=== PATIENT | female | born 1970 | race American Indian/Alaskan Native ===

== ENCOUNTER 2017-08-24 06:56 | Emergency (ER) | payer MEDICARE ==
[2017-08-24 07:08] VITALS: BP 140/95
[2017-08-24 08:03] LABS: Basophils % (Auto) 0.5 % (0.0-1.8); Eosinophils % (Auto) 1.2 % (0.0-4.3); Hematocrit 37.1 % (30.3-42.9); Hemoglobin 11.7 gm/dl (10.1-14.3); Lymphocytes # (Auto) 1.1 K/mm3 (1.2-5.4); Lymphocytes % (Auto) 36.1 % (13.4-35.0); Mean Corpuscular HGB Conc 32 % (30-34); Mean Corpuscular Volume 78 fl (79-97); Monocytes # (Auto) 0.3 K/mm3 (0.0-0.8); Monocytes % (Auto) 8.5 % (0.0-7.3); Platelet Count 287 K/mm3 (140-440); Red Blood Count 4.76 M/mm3 (3.65-5.03); Red Cell Distribution Width 19.6 % (13.2-15.2)
[2017-08-24 08:07] LABS: Mean Corpuscular Hemoglobin 25 pg (28-32)
[2017-08-24 08:26] LABS: Alanine Aminotransferase 10 units/L (7-56); Albumin 3.8 g/dL (3.9-5); BUN/Creatinine Ratio 10; Blood Urea Nitrogen 7 mg/dL (7-17); Calcium 9.1 mg/dL (8.4-10.2); Hemolysis Index 15
[2017-08-24] MEDS ORDERED: PERCOCET 5/325 PO ONE (08:27)
--- NOTE | 2017-08-24 08:27 | Emergency Department Report ---
HPI - General Chief Complaint: Skin Rash Time Seen by Provider: 08/24/17 07:39 - HPI HPI: 46-year-old female presents to the emergency department by EMS from home with complaints of pain and concern for infection to the right amputated upper leg. She also says that she thought she had some bugs that bit her yesterday when she was in her wheelchair and was raking leaves. Patient is also asking for pain medications for her chronic pains secondary to her amputations. She says that she just moved up here from [place] since last month and has been set up to see a primary care doctor/pain physician next week. She has a past medical history of protein S deficiency, hypertension, peripheral artery disease and PTSD. She is a tobacco smoker. She denies any fever, nausea , vomiting, chest pain, shortness of breath. She has a laceration to the bottom of the right leg amputation that she has concern for infection. She has a history of bilateral above-knee amputations. ED Past Medical Hx - Past Medical History Previous Medical History?: Yes Hx Hypertension: Yes Hx Psychiatric Treatment: Yes (bipolar) Additional medical history: protein s deficiency - Social History Smoking Status: Current Every Day Smoker Substance Use Type: Alcohol - Medications Home Medications: Home Medications Medication Instructions Recorded Confirmed Last Taken Type Cephalexin [Keflex] 1,000 mg PO Q12HR #28 cap 08/24/17 Unknown Rx Fluconazole [Diflucan] 150 mg PO ONCE #1 tablet 08/24/17 Unknown Rx Oxycodone HCl/Acetaminophen 1 each PO Q8H PRN #20 tablet 08/24/17 Unknown Rx [Percocet 10/325 mg] ED Review of Systems ROS: Stated complaint: ITCHING Other details as noted in HPI Comment: All other systems reviewed and negative Constitutional: denies: chills, fever Eyes: denies: eye pain, eye discharge, vision change ENT: denies: ear pain, throat pain Respiratory: denies: cough, shortness of breath, wheezing Cardiovascular: denies: chest pain, palpitations Gastrointestinal: denies: abdominal pain, nausea, diarrhea Genitourinary: denies: urgency, dysuria, discharge Musculoskeletal: myalgia. denies: back pain Skin: other (RLE ulceration). denies: rash, lesions Neurological: denies: headache, numbness Physical Exam - Physical Exam Vital Signs: Vital Signs 08/24/17 07:04 Temperature 98 F Pulse Rate 102 H Respiratory 20 Rate Blood Pressure 140/95 O2 Sat by Pulse 99 Oximetry Physical Exam: GENERAL: The patient is well-developed well-nourished. HENT: Normocephalic. Atraumatic. Patient has moist mucous membranes. EYES: Extraocular motions are intact. Pupils equal reactive to light bilaterally. NECK: Supple. Trachea is midline. CHEST/LUNGS: Clear to auscultation. There is no respiratory distress noted. HEART/CARDIOVASCULAR: Regular. There is no tachycardia. There is no murmur. ABDOMEN: Abdomen is soft, nontender. Patient has normal bowel sounds. There is no abdominal distention. SKIN: Skin is warm and dry. Patient has a stage II ulceration to the distal portion of the right ihrnx-tha-zfjw amputation/leg to the stump. There is some very mild erythema and some mild oozing of yellowish discharge. NEURO: The patient is awake, alert, and oriented. The patient is cooperative. The patient has no focal neurologic deficits. The patient has normal speech. MUSCULOSKELETAL: There is some tenderness to palpation to the right distal portion of her amputated leg at the stump. Bilateral above-knee amputations that are chronic. ED Course Vital Signs 08/24/17 07:04 Temperature 98 F Pulse Rate 102 H Respiratory 20 Rate Blood Pressure 140/95 O2 Sat by Pulse 99 Oximetry ED Medical Decision Making - Lab Data Result diagrams: 08/24/17 07:43 08/24/17 07:55 - Radiology Data Radiology results: report reviewed CT PELVIS WITH CONTRAST History: Pain, concern for infection, right lower extremity pain. Technique: Helical CT following IV contrast. Sagittal and coronal reformatted images. Findings: The patient was scanned from the iliac crests through both lower extremities. Bilateral pzdxb-blu-thvo amputations are identified. There is no evidence for abscess, subcutaneous gas or osteomyelitis. Muscular structures are intact and unremarkable. The uterus, adnexa, bladder and visualized bowel loops within the pelvis are unremarkable. Normal appendix. No evidence for pelvic fluid collection or mass. Moderate to severe atherosclerotic disease is noted in the arterial structures in the pelvis. There appears to be a bypass graft in the right lateral wall subcutaneous tissues which is partially imaged. Impression: No acute process or evidence for abscess/osteomyelitis. Bilateral prusd-eby-hsqz amputations with no discrete abnormality. Atherosclerotic disease as described. Transcribed By: TTR Dictated By: DAINELA RODRIGUEZ JR, MD Electronically Authenticated By: DANIELA RODRIGUEZ JR, MD Signed Date/Time: 08/24/17 0716 - Medical Decision Making Patient presents with the complaint of potential infection to the distal portion of the right leg which is an benap-fei-xdbj amputation. There does appear to be a stage II ulceration with some mild oozing discharge and very mild erythema. For this reason the patient was given IV antibiotics. Labs are mostly unremarkable and do not show any leukocytosis. Mild hypokalemia replaced with potassium chloride orally. She was given some pain medication. CT of the pelvis, including the legs, was done with IV contrast that did not show any signs of abscess, osteomyelitis, clots, or any acute process. The patient did display some agitated behavior that may be consistent with her bipolar disorder and was very rude to ER staff. However the patient did appear to have the capacity to make medical decisions for herself and did not appear to be a 1013 candidate. The patient takes chronic pain medication and is switching to a new primary care physician and pain physician in [employer] from [place]. I checked the [place] prescription monitoring and the patient has not been scribed any opiate medication for the past few months. She is asking for enough medication to get her to her primary care appointment. I explained to her that I am not willing to write that quantity of medication and if she needs more, she may need to return to the closest emergency department. She was given a prescription to get her to early next week and we discussed taking it only as prescribed, the sedating nature of this medication, and the risks of taking opiate/narcotic meds. - Differential Diagnosis ulceration, cellulitis, osteomyelitis Critical Care Time: No Critical care attestation.: If time is entered above; I have spent that time in minutes in the direct care of this critically ill patient, excluding procedure time. ED Disposition Clinical Impression: Chronic pain Qualifiers: Chronic pain type: other chronic pain Qualified Code(s): G89.29 - Other chronic pain Ulcer of right leg Qualifiers: Non-pressure ulcer stage: with fat layer exposed Qualified Code(s): L97.912 - Non-pressure chronic ulcer of unspecified part of right lower leg with fat layer exposed Disposition: DC-01 TO HOME OR SELFCARE Is pt being admited?: No Condition: Stable Instructions: Acute Wound Care (ED), Chronic Wound Care (ED), Pressure Ulcer ( ED) Additional Instructions: Please follow up with a primary care physician as soon as possible. Return to the emergency Department with any worsening of her symptoms, development of fever, or with any acute distress. You have been prescribed a medication that is sedating and therefore should not be taken prior to driving, working, and responsible for children and in no way should be mixed with alcohol of any quantity. Prescriptions: Cephalexin [Keflex] 1,000 mg PO Q12HR #28 cap Fluconazole [Diflucan] 150 mg PO ONCE #1 tablet Oxycodone HCl/Acetaminophen [Percocet 10/325 mg] 1 each PO Q8H PRN #20 tablet PRN Reason: Pain Referrals: PRIMARY CARE, [Primary Care Provider] - 3-5 Days DUSTIN KONG MD [Staff Physician] - 3-5 Days [facility] [Outside] - 3-5 Days Time of Disposition: 12:25
[2017-08-24] MEDS ORDERED: K-DUR PO ONE (09:00)
[2017-08-24] MEDS ORDERED: BENADRYL PO ONE (09:02)
[2017-08-24] MEDS ORDERED: VANCOMYCIN/0.45 NS 1 GM/250 ML 1 GM/250 ML BAG IV SCH (11:00)
[2017-08-24] MEDS ORDERED: VANCOMYCIN/NS 1 GM/250 ML 1 GM/250 ML BAG IV SCH (11:00)
--- NOTE | 2017-08-24 12:04 | Cat Scan Report ---
CT PELVIS WITH CONTRAST History: Pain, concern for infection, right lower extremity pain. Technique: Helical CT following IV contrast. Sagittal and coronal reformatted images. Findings: The patient was scanned from the iliac crests through both lower extremities. Bilateral pqfdo-sox-ucdw amputations are identified. There is no evidence for abscess, subcutaneous gas or osteomyelitis. Muscular structures are intact and unremarkable. The uterus, adnexa, bladder and visualized bowel loops within the pelvis are unremarkable. Normal appendix. No evidence for pelvic fluid collection or mass. Moderate to severe atherosclerotic disease is noted in the arterial structures in the pelvis. There appears to be a bypass graft in the right lateral wall subcutaneous tissues which is partially imaged. Impression: No acute process or evidence for abscess/osteomyelitis. Bilateral saipu-fcc-biwd amputations with no discrete abnormality. Atherosclerotic disease as described.
== END 2017-08-24 13:00 | disposition home or self-care (01) ==
LOC: ED 06:56
DX: L97.912 Non-pressure chronic ulcer of unspecified part of right lower leg with fat layer exposed (principal); R10.2 Pelvic and perineal pain; G89.29 Other chronic pain; F31.9 Bipolar disorder, unspecified; I10 Essential (primary) hypertension; F17.200 Nicotine dependence, unspecified, uncomplicated; Z89.611 Acquired absence of right leg above knee; Z89.612 Acquired absence of left leg above knee
CPT/HCPCS: 36415; 72193; 80053; 84703; 85025; 99284; G0480; Q9967; 80320

== ENCOUNTER 2018-09-18 11:17 | Emergency (ER) | payer MEDICARE ==
[2018-09-18 11:27] VITALS: BP 117/72
--- NOTE | 2018-09-18 11:46 | Emergency Department Report ---
Mariela Doc - Documentation Documentation: 47 y o female presents to Ed cc of sob and rectal bleeding that started today. states she fell and hit her head x 2 weeks ago and her [place] doctor told her she needs a CT head talkative in Ed, has psych hx denies SI/HI labs ordered
[2018-09-18 12:34] LABS: Basophils % (Auto) 0.9 % (0.0-1.8); Eosinophils # (Auto) 0.1 K/mm3 (0.0-0.4); Eosinophils % (Auto) 2.1 % (0.0-4.3); Hematocrit 34.7 % (30.3-42.9); Hemoglobin 11.6 gm/dl (10.1-14.3); Lymphocytes # (Auto) 1.4 K/mm3 (1.2-5.4); Lymphocytes % (Auto) 26.8 % (13.4-35.0); Mean Corpuscular HGB Conc 34 % (30-34); Mean Corpuscular Volume 87 fl (79-97); Monocytes # (Auto) 0.3 K/mm3 (0.0-0.8); Monocytes % (Auto) 6.8 % (0.0-7.3); Platelet Count 326 K/mm3 (140-440); Red Blood Count 3.98 M/mm3 (3.65-5.03); Red Cell Distribution Width 16.2 % (13.2-15.2)
--- NOTE | 2018-09-18 12:55 | Emergency Department Report ---
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 Patient also had a history of bipolar disorder. Patient has history of narcotics dependence. She stated that she is taking Percocet every 6 hour. And presented to the ER with multiple complaints. Patient stated that she has been having constipation and painful rectal bleeding. She also stated that she fell 2 weeks ago and hit her head. She also complaining of generalized body pain which is chronic in nature. Patient stated that she is out of her Percocet. Patient denied any fever, chills, nausea or vomiting. No chest pain or shortness of breath. No abdominal pain. Severity scale (0 -10): 10 - Related Data Previous Rx's Medication Instructions Recorded Last Taken Type Fluconazole [Diflucan] 150 mg PO ONCE #1 tablet 08/24/17 Unknown Rx Oxycodone HCl/Acetaminophen 1 each PO Q8H PRN #20 tablet 08/24/17 Unknown Rx [Percocet 10/325 mg] cephALEXin [Keflex] 1,000 mg PO Q12HR #28 cap 08/24/17 Unknown Rx Allergies Allergy/AdvReac Type Severity Reaction Status Date / Time acetaminophen [From Lortab] Allergy Unknown Verified 09/18/18 11:20 hydrocodone [From Lortab] Allergy Unknown Verified 09/18/18 11:20 morphine Allergy Unknown Verified 09/18/18 11:20 Sulfa (Sulfonamide Allergy Unknown Verified 09/18/18 11:20 Antibiotics) ED Review of Systems ROS: Stated complaint: JUAN ANTONIO/BLEEDING/HBP Other details as noted in HPI Comment: All other systems reviewed and negative Constitutional: denies: chills, fever Respiratory: denies: cough, orthopnea, shortness of breath, SOB with exertion Cardiovascular: denies: chest pain, palpitations Gastrointestinal: denies: abdominal pain, nausea Musculoskeletal: back pain Neurological: denies: headache ED Past Medical Hx - Past Medical History Hx Hypertension: Yes Hx Psychiatric Treatment: Yes (bipolar) Additional medical history: protein s deficiency - Surgical History Hx Cholecystectomy: Yes Additional Surgical History: [place] AKA, tubal ligation, tumor removal. - Social History Smoking Status: Current Every Day Smoker Substance Use Type: None - Medications Home Medications: Home Medications Medication Instructions Recorded Confirmed Last Taken Type Fluconazole [Diflucan] 150 mg PO ONCE #1 tablet 08/24/17 Unknown Rx Oxycodone HCl/Acetaminophen 1 each PO Q8H PRN #20 tablet 08/24/17 Unknown Rx [Percocet 10/325 mg] cephALEXin [Keflex] 1,000 mg PO Q12HR #28 cap 08/24/17 Unknown Rx ED Physical Exam - General Limitations: No Limitations General appearance: alert, in no apparent distress - Head Head exam: Present: atraumatic, normocephalic - Eye Eye exam: Present: normal appearance, PERRL - ENT ENT exam: Present: normal exam, normal orophraynx, mucous membranes moist - Neck Neck exam: Present: normal inspection, full ROM. Absent: tenderness, meningismus, lymphadenopathy, thyromegaly - Respiratory Respiratory exam: Present: normal lung sounds bilaterally. Absent: respiratory distress, wheezes, rales, rhonchi, stridor, chest wall tenderness, accessory muscle use, decreased breath sounds, prolonged expiratory - Cardiovascular Cardiovascular Exam: Present: regular rate, normal rhythm, normal heart sounds - GI/Abdominal GI/Abdominal exam: Present: soft, normal bowel sounds. Absent: distended, tenderness, guarding, rebound, rigid, organomegaly, mass, bruit, pulsatile mass, hernia - Extremities Exam Extremities exam: Present: normal inspection - Back Exam Back exam: Present: normal inspection, full ROM. Absent: CVA tenderness (R), CVA tenderness (L), muscle spasm - Neurological Exam Neurological exam: Present: alert, oriented X3, CN II-XII intact - Skin Skin exam: Present: warm, intact, normal color ED Course Vital Signs 09/18/18 11:25 Temperature 98.5 F Pulse Rate 84 Respiratory 20 Rate Blood Pressure 117/72 O2 Sat by Pulse 97 Oximetry ED Medical Decision Making - Lab Data Result diagrams: 09/18/18 12:15 09/18/18 12:15 - Radiology Data Radiology results: report reviewed Referring Physician: SLIVIO ACKERMAN Patient Name: ALEXANDER JACKSON Date of : 1970 Sex: Female Report Date: 2018-09-18 Report Status: Finalized Findings [facility] [address] [id number] Cat Scan Report Signed Patient: ALEXANDER JACKSON MR#: [id number] : 1970 Acct:[id number] Age/Sex: 47 / F ADM Date: 09/18/18 Loc: ED Attending Dr: Ordering Physician: BRIGITTE PALOMO Date of Service: 09/18/18 Procedure(s): CT head/brain wo con Accession Number(s): [id number] cc: BRIGITTE PALOMO EXAM: CT HEAD/BRAIN WO CON HISTORY: head pain s/p fall TECHNIQUE: Spiral axial CT images are obtained through the brain without the administration of intravenous contrast. COMPARISON: None available. FINDINGS: The centrum semiovale, basal ganglia, cerebellum, and brainstem are grossly unremarkable for a noncontrast CT scan. There is no acute intracranial hemorrhage, discernible acute infarction, mass lesion, midline shift, or hydrocephalus seen. No extra-axial mass or abnormal fluid collection is seen. The calvarium is intact. The partially imaged paranasal sinuses, middle ear cavities, and mastoid air cells are clear. IMPRESSION: 1. No skull fracture or acute intracranial hemorrhage seen. 2. No discernible acute infarction, mass lesions, midline shift, mass effect or hydrocephalus seen. 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 Patient also had a history of bipolar disorder. Patient has history of narcotics dependence. She stated that she is taking Percocet every 6 hour. And presented to the ER with multiple complaints. Patient stated that she has been having constipation and painful rectal bleeding. She also stated that she fell 2 weeks ago and hit her head. She also complaining of generalized body pain which is chronic in nature. Patient stated that she is out of her Percocet. Patient denied any fever, chills, nausea or vomiting. No chest pain or shortness of breath. No abdominal pain. Labs reviewed and is unremarkable except for slightly elevated d-dimer which is expected for patient chronic coagulopathy. CT brain is negative for acute findings. Patient will be given a Percocet until she will see how her pain medicine doctor after tomorrow. Critical care attestation.: If time is entered above; I have spent that time in minutes in the direct care of this critically ill patient, excluding procedure time. ED Disposition Clinical Impression: Head injury, Chronic pain Disposition: DC-01 TO HOME OR SELFCARE Is pt being admited?: No Condition: Stable Instructions: Minor Head Injury (ED), Chronic Pain (ED) Referrals: [facility] [Provider Group] - 3-5 Days
[2018-09-18 12:57] LABS: Alanine Aminotransferase 17 units/L (7-56); Albumin 3.8 g/dL (3.9-5); BUN/Creatinine Ratio 11; Blood Urea Nitrogen 8 mg/dL (7-17); Calcium 8.7 mg/dL (8.4-10.2); Hemolysis Index 13
--- NOTE | 2018-09-18 13:57 | Cat Scan Report ---
EXAM: CT HEAD/BRAIN WO CON HISTORY: head pain s/p fall TECHNIQUE: Spiral axial CT images are obtained through the brain without the administration of intra venous contrast. COMPARISON: None available. FINDINGS: The centrum semiovale, basal ganglia, cerebellum, and brainstem are grossly unremarkable for a noncon trast CT scan. There is no acute intracranial hemorrhage, discernible acute infarction, mass lesion, midline shift, or hydrocephalus seen. No extra-axial mass or abnormal fluid collection is seen. The calvarium is intact. The partially imaged paranasal sinuses, middle ear cavities, and mastoid ai r cells are clear. IMPRESSION: 1. No skull fracture or acute intracranial hemorrhage seen. 2. No discernible acute infarction, mass lesions, midline shift, mass effect or hydrocephalus seen. This document is electronically signed by Rodrigo Mattson MD., September 18 2018 01:55:21 PM ET
[2018-09-18 14:17] LABS: INR 0.82 (0.87-1.13)
== END 2018-09-18 15:25 | disposition home or self-care (01) ==
LOC: ED 11:17
DX: S09.90XA Unspecified injury of head, initial encounter (principal); F14.20 Cocaine dependence, uncomplicated; I10 Essential (primary) hypertension; F17.200 Nicotine dependence, unspecified, uncomplicated; Z90.49 Acquired absence of other specified parts of digestive tract; Z98.51 Tubal ligation status; Z89.612 Acquired absence of left leg above knee; Z89.611 Acquired absence of right leg above knee; Z88.5 Allergy status to narcotic agent; Z88.2 Allergy status to sulfonamides; Z88.8 Allergy status to other drugs, medicaments and biological substances; W18.39XA Other fall on same level, initial encounter; Y93.89 Activity, other specified; Y92.89 Other specified places as the place of occurrence of the external cause; Y99.8 Other external cause status
CPT/HCPCS: 36415; 70450; 80053; 85025; 85379; 85610; 99284

== ENCOUNTER 2018-10-02 17:57 | Emergency (ER) | payer MEDICARE ==
[2018-10-02] MEDS ORDERED: IBUPROFEN PO ONE ×2 (20:06→20:07)
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
[2018-10-02 23:44] VITALS: BP 128/76
== END 2018-10-02 23:45 | disposition home or self-care (01) ==
LOC: ED 17:57
DX: S46.912A Strain of unspecified muscle, fascia and tendon at shoulder and upper arm level, left arm, initial encounter (principal); S39.012A Strain of muscle, fascia and tendon of lower back, initial encounter; I10 Essential (primary) hypertension; F31.9 Bipolar disorder, unspecified; F17.200 Nicotine dependence, unspecified, uncomplicated; Z90.49 Acquired absence of other specified parts of digestive tract; Z98.51 Tubal ligation status; Z88.2 Allergy status to sulfonamides; Z88.6 Allergy status to analgesic agent; Z79.899 Other long term (current) drug therapy; V89.2XXA Person injured in unspecified motor-vehicle accident, traffic, initial encounter; Y93.89 Activity, other specified; Y92.488 Other paved roadways as the place of occurrence of the external cause; Y99.8 Other external cause status
CPT/HCPCS: 72100

== ENCOUNTER 2018-11-01 22:59 | Inpatient (IN) | payer MEDICARE ==
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
[2018-11-01 23:39] LABS: Hematocrit 32.8 % (30.3-42.9); Hemoglobin 11.2 gm/dl (10.1-14.3); Mean Corpuscular HGB Conc 34 % (30-34); Mean Corpuscular Volume 87 fl (79-97); Platelet Count 249 K/mm3 (140-440); Red Blood Count 3.79 M/mm3 (3.65-5.03); Red Cell Distribution Width 17.1 % (13.2-15.2)
[2018-11-01 23:58] LABS: BUN/Creatinine Ratio 13; Blood Urea Nitrogen 10 mg/dL (7-17); Calcium 9.1 mg/dL (8.4-10.2); Hemolysis Index 6
--- NOTE | 2018-11-02 00:01 | XRay Report ---
PROCEDURE: XR CHEST 1V AP TECHNIQUE: Chest radiograph single view. HISTORY: Chest Pain COMPARISONS: None . FINDINGS: Heart: Normal. Mediastinum/Vessels: Normal. Lungs/Pleural space: There are bilateral perihilar infiltrates. There are no effusions or pneumothor aces.. Bony thorax: No acute osseous abnormality. Life support devices: None. IMPRESSION: Heart size is normal. There are bilateral pulmonary infiltrates.. This document is electronically signed by Tj Alexander MD., Nov 01 2018 11:59:44 PM ET
[2018-11-02] MEDS ORDERED: LEVAQUIN 500MG/100ML 500 MG/100 ML BAG IV ONE (00:12)
[2018-11-02] MEDS ORDERED: TYLENOL PO PRN (01:20)
[2018-11-02] MEDS ORDERED: SODIUM CHLORIDE FLUSH SYRINGE 10 ML IV PRN (01:20)
--- NOTE | 2018-11-02 01:24 | History and Physical Report ---
History of Present Illness Date of examination: 11/02/18 History of present illness: 47-year-old woman with a history of hypertension, bipolar, protein S deficiency, DVT, chronic pain comes o the emergency room with complaints of shortness of breath 2 days. Difficult to obtain ROS, sleepy PAST MEDICAL HISTORY: hypertension, bipolar, protein S deficienc PAST SURGICAL HISTORY: Bilateral AKA SOCIAL HISTORY: Denies alcohol, drugs, tobacco FAMILY HISTORY: Hypertension Medications and Allergies Allergies Allergy/AdvReac Type Severity Reaction Status Date / Time acetaminophen [From Lortab] Allergy Unknown Verified 10/02/18 18:07 hydrocodone [From Lortab] Allergy Unknown Verified 10/02/18 18:07 morphine Allergy Unknown Verified 10/02/18 18:07 Sulfa (Sulfonamide Allergy Unknown Verified 10/02/18 18:07 Antibiotics) Home Medications Medication Instructions Recorded Confirmed Last Taken Type Fluconazole [Diflucan] 150 mg PO ONCE #1 tablet 08/24/17 Unknown Rx Oxycodone HCl/Acetaminophen 1 each PO Q8H PRN #20 tablet 08/24/17 Unknown Rx [Percocet 10/325 mg] cephALEXin [Keflex] 1,000 mg PO Q12HR #28 cap 08/24/17 Unknown Rx Lactulose 10 gm PO DAILY PRN #150 ml 09/18/18 Unknown Rx Oxycodone HCl/Acetaminophen 1 each PO Q6HR PRN #10 tablet 09/18/18 Unknown Rx [Percocet 10/325 mg] Cyclobenzaprine [Flexeril] 10 mg PO TID PRN #30 tablet 10/02/18 Unknown Rx Naproxen [Naprosyn] 500 mg PO BID PRN #30 tablet 10/02/18 Unknown Rx Active Meds: Active Medications Acetaminophen (Tylenol) 650 mg PO Q4H PRN PRN Reason: Pain MILD(1-3)/Fever >100.5/BOSE Albuterol/Ipratropium (Duoneb *Not For Prn Use*) 1 ampul IH Q6HRT LETTY Enoxaparin Sodium (Lovenox) 30 mg SUB-Q QDAY LETTY Levofloxacin/Dextrose (Levaquin 750mg/150ml) 750 mg in 150 mls @ 100 mls/hr IV Q24H LETTY Ondansetron HCl (Zofran) 4 mg IV Q8H PRN PRN Reason: Nausea And Vomiting Sodium Chloride (Sodium Chloride Flush Syringe 10 Ml) 10 ml IV BID LETTY Sodium Chloride (Sodium Chloride Flush Syringe 10 Ml) 10 ml IV PRN PRN PRN Reason: LINE FLUSH Exam - Physical Exam Narrative exam: PGeneral Apperance: The patient lying in bed, breathing comfortable HEENT: Normocephalic, atraumatic. Pupils equally round and reactive to light, EOMI, no sclericterus or JVD or thyromegaly or nodule. , no carotid bruit, mucous membranes moist, no exudate or erythema Heart: S1-S2, regular is rhythm Lungs: Crackles bilaterally, breathing comfortable Abdomen: Positive bowel sounds, soft, nontender, nondistended, no organomegaly Extremities: b/l AKA, No edema cyanosis clubbing Skin: no rash, nodule, warm and dry Neuro: cranial nerves 2-12 intact, speech is fluent, motor/sensory intact - Constitutional Vitals: Temp Pulse Resp BP Pulse Ox 98.2 F 92 H 11 L 106/79 96 11/01/18 23:08 11/02/18 01:15 11/02/18 01:15 11/02/18 01:15 11/02/18 01:15 Results - Labs CBC & Chem 7: 11/01/18 23:29 11/01/18 23:29 Labs: Abnormal lab results 11/01/18 Range/Units 23:29 WBC 4.3 L (4.5-11.0) K/mm3 RDW 17.1 H (13.2-15.2) % - Imaging and Cardiology EKG: image reviewed Chest x-ray: report reviewed Assessment and Plan Assessment Bilateral community-acquired pneumonia Hypertension Bipolar Protein S deficiency Plan Admit to medicine Start IV Levaquin, breathing treatments Continue Provera prescribed medication saline to which prophylaxis
[2018-11-02] MEDS: DUONEB *Not for PRN Use IH SCH ×4 (02:00→21:21)
[2018-11-02 03:16] LABS: Band Neutrophils # (Manual) 0.1 K/mm3; Basophils % (Manual) 0 % (0.0-1.8); Total Cells Counted 100
[2018-11-02 03:17] LABS: Anisocytosis 1+; Hypochromasia 1+
[2018-11-02] MEDS ORDERED: LOVENOX SUB-Q SCH (10:00)
[2018-11-02] MEDS: SODIUM CHLORIDE FLUSH SYRINGE 10 ML IV SCH ×2 (11:47→22:31)
[2018-11-02] MEDS: LOVENOX SUB-Q SCH (11:47)
[2018-11-02] MEDS ORDERED: MIRALAX 3350 PO PRN (13:26)
[2018-11-02] MEDS ORDERED: PERCOCET PO PRN (17:01)
[2018-11-02] MEDS ORDERED: EFFEXOR 225 MG PO SCH (17:15)
[2018-11-02] MEDS ORDERED: PROTONIX 20 MG PO SCH (17:15)
[2018-11-02] MEDS: PERCOCET 5/325 PO PRN ×2 (17:45→22:34)
[2018-11-02] MEDS: XARELTO PO SCH (18:25)
[2018-11-02] MEDS: XANAX PO PRN (19:46)
[2018-11-02] MEDS: EFFEXOR PO SCH (19:46)
[2018-11-02] MEDS ORDERED: LIPITOR 10 MG PO SCH (22:00)
[2018-11-02] MEDS ORDERED: REMERON PO SCH (22:00)
[2018-11-02] MEDS ORDERED: NON-FORMULARY (Metoprolol 25 MG) PO SCH (22:00)
[2018-11-02] MEDS ORDERED: NON-FORMULARY (Trazodone 100 MG) PO SCH (22:00)
[2018-11-02] MEDS ORDERED: LYRICA 200 MG PO SCH (22:00)
[2018-11-02] MEDS: LEVAQUIN 750MG/150ML 750 MG/150 ML BAG IV SCH (22:19)
[2018-11-02] MEDS: GEODON PO SCH (22:28)
[2018-11-02] MEDS: REMERON PO SCH (22:29)
[2018-11-02] MEDS: LYRICA PO SCH ×2 (22:29)
[2018-11-02] MEDS: DESYREL PO SCH (22:31)
[2018-11-02] MEDS: LOPRESSOR PO SCH (22:33)
[2018-11-02] MEDS: ZOFRAN IV PRN (23:24)
[2018-11-03] MEDS: BENADRYL PO PRN ×3 (00:26→21:46)
[2018-11-03] MEDS ORDERED: PROVENTIL IH PRN (01:24)
[2018-11-03] MEDS: PERCOCET 5/325 PO PRN ×5 (02:27→21:52)
[2018-11-03] MEDS: ROXICODONE PO PRN ×5 (02:30→22:29)
[2018-11-03] MEDS: LYRICA PO SCH ×5 (04:59→21:46)
[2018-11-03 07:14] LABS: Hematocrit 32.2 % (30.3-42.9); Hemoglobin 10.6 gm/dl (10.1-14.3); Mean Corpuscular HGB Conc 33 % (30-34); Mean Corpuscular Volume 87 fl (79-97); Platelet Count 230 K/mm3 (140-440); Red Blood Count 3.69 M/mm3 (3.65-5.03); Red Cell Distribution Width 17.2 % (13.2-15.2)
[2018-11-03 07:28] LABS: BUN/Creatinine Ratio 13; Blood Urea Nitrogen 10 mg/dL (7-17); Calcium 8.4 mg/dL (8.4-10.2); Hemolysis Index 7
[2018-11-03] MEDS: DUONEB *Not for PRN Use IH SCH ×3 (08:16→19:42)
[2018-11-03 08:23] LABS: Total Cells Counted 100
[2018-11-03 08:24] LABS: Hypochromasia Few; Platelet Estimate Consistent w Auto
[2018-11-03] MEDS: LOPRESSOR PO SCH ×2 (10:00→21:49)
[2018-11-03] MEDS: LOVENOX SUB-Q SCH (11:30)
[2018-11-03] MEDS: EFFEXOR PO SCH (11:51)
[2018-11-03] MEDS: PROTONIX PO SCH (11:53)
[2018-11-03] MEDS: SODIUM CHLORIDE FLUSH SYRINGE 10 ML IV SCH ×2 (11:53→22:48)
[2018-11-03] MEDS: XANAX PO PRN ×3 (12:02→20:47)
--- NOTE | 2018-11-03 13:08 | Progress Note ---
Assessment and Plan Assessment and plan: 47 f who pw sob and cough, [facility]; htn, bipolar, protein s def, hx of PE, Bilateral community-acquired pneumonia Hypertension Bipolar Protein S deficiency acute hypoxic resp failure plan abx, cont home meds oxygen as needed GEripsych eval History Interval history: Review of systems Constitutional: No fevers, no malaise, no joint pains CVS: No chest pain, no orthopnea, no pedal edema GI: No abdominal pain, no diarrhea, no vomiting, no constipation Respiratory: Shortness of breath and cough is improved Hospitalist Physical - Physical exam Narrative exam: General.: Appears well, no distress, nontoxic HEENT: Moist mucous membranes, extraocular muscles intact, no lymphadenopathy Neck: supple Cardiac: S1-S2 heard Lungs: Crackles Abdomen: soft , nontender, nondistended, bowel sounds positive Extremities: no edema clubbing or cyanosis, bilateral AKA Skin: no rash or lesions Neurologic: no gross focal deficits Psych: calm, and cooperative - Constitutional Vitals: Temp Pulse Resp BP Pulse Ox 98.2 F 102 H 20 118/76 98 11/03/18 05:13 11/03/18 08:28 11/03/18 08:28 11/03/18 05:13 11/03/18 09:45 Results - Labs CBC & Chem 7: 11/03/18 06:31 11/03/18 06:31 Labs: Laboratory Last Values WBC 3.7 K/mm3 (4.5-11.0) L 11/03/18 06:31 RBC 3.69 M/mm3 (3.65-5.03) 11/03/18 06:31 Hgb 10.6 gm/dl (10.1-14.3) 11/03/18 06:31 Hct 32.2 % (30.3-42.9) 11/03/18 06:31 MCV 87 fl (79-97) 11/03/18 06:31 MCH 29 pg (28-32) 11/03/18 06:31 MCHC 33 % (30-34) 11/03/18 06:31 RDW 17.2 % (13.2-15.2) H 11/03/18 06:31 Plt Count 230 K/mm3 (140-440) 11/03/18 06:31 Add Manual Diff Complete 11/03/18 06:31 Total Counted 100 11/03/18 06:31 Seg Neuts % (Manual) 40.0 % (40.0-70.0) 11/03/18 06:31 1.0 % 11/03/18 06:31 44.0 % (13.4-35.0) H 11/03/18 06:31 Reactive Lymphs % (Man) 2.0 % 11/03/18 06:31 8.0 % (0.0-7.3) H 11/03/18 06:31 2.0 % (0.0-4.3) 11/03/18 06:31 1.0 % (0.0-1.8) 11/03/18 06:31 1.0 % 11/03/18 06:31 1.0 % 11/03/18 06:31 0 % 11/03/18 06:31 0 % 11/03/18 06:31 Nucleated RBC % Not Reportable 11/03/18 06:31 Seg Neutrophils # Man 1.5 K/mm3 (1.8-7.7) L 11/03/18 06:31 Band Neutrophils # 0.0 K/mm3 11/03/18 06:31 1.6 K/mm3 (1.2-5.4) 11/03/18 06:31 Abs React Lymphs (Man) 0.1 K/mm3 11/03/18 06:31 0.3 K/mm3 (0.0-0.8) 11/03/18 06:31 0.1 K/mm3 (0.0-0.4) 11/03/18 06:31 0.0 K/mm3 (0.0-0.1) 11/03/18 06:31 0.0 K/mm3 11/03/18 06:31 0.0 K/mm3 11/03/18 06:31 0.0 K/mm3 11/03/18 06:31 Blast Cells # 0.0 K/mm3 11/03/18 06:31 WBC Morphology Not Reportable 11/03/18 06:31 Hypersegmented Neuts Not Reportable 11/03/18 06:31 Hyposegmented Neuts Not Reportable 11/03/18 06:31 Hypogranular Neuts Not Reportable 11/03/18 06:31 Not Reportable 11/03/18 06:31 Not Reportable 11/03/18 06:31 Not Reportable 11/03/18 06:31 Not Reportable 11/03/18 06:31 Not Reportable 11/03/18 06:31 Not Reportable 11/03/18 06:31 Consistent w auto 11/03/18 06:31 Not Reportable 11/03/18 06:31 Plt Clumps, EDTA Not Reportable 11/03/18 06:31 Not Reportable 11/03/18 06:31 Not Reportable 11/03/18 06:31 Not Reportable 11/03/18 06:31 Plt Morphology Comment Not Reportable 11/03/18 06:31 RBC Morphology Not Reportable 11/03/18 06:31 Dimorphic RBCs Not Reportable 11/03/18 06:31 Not Reportable 11/03/18 06:31 Few 11/03/18 06:31 Not Reportable 11/03/18 06:31 Not Reportable 11/03/18 06:31 Not Reportable 11/03/18 06:31 Not Reportable 11/03/18 06:31 Not Reportable 11/03/18 06:31 Not Reportable 11/03/18 06:31 Not Reportable 11/03/18 06:31 Not Reportable 11/03/18 06:31 Not Reportable 11/03/18 06:31 Not Reportable 11/03/18 06:31 Not Reportable 11/03/18 06:31 Not Reportable 11/03/18 06:31 Not Reportable 11/03/18 06:31 Not Reportable 11/03/18 06:31 Not Reportable 11/03/18 06:31 Not Reportable 11/03/18 06:31 Not Reportable 11/03/18 06:31 Acanthocytes (Spur) Not Reportable 11/03/18 06:31 Rouleaux Not Reportable 11/03/18 06:31 Not Reportable 11/03/18 06:31 Not Reportable 11/03/18 06:31 Not Reportable 11/03/18 06:31 Not Reportable 11/03/18 06:31 Hem Pathologist Commnt No 11/03/18 06:31 Sodium 138 mmol/L (137-145) 11/03/18 06:31 Potassium 4.0 mmol/L (3.6-5.0) 11/03/18 06:31 Chloride 99.2 mmol/L (98-107) 11/03/18 06:31 Carbon Dioxide 26 mmol/L (22-30) 11/03/18 06:31 17 mmol/L 11/03/18 06:31 BUN 10 mg/dL (7-17) 11/03/18 06:31 0.8 mg/dL (0.7-1.2) 11/03/18 06:31 Estimated GFR > 60 ml/min 11/03/18 06:31 13 % 11/03/18 06:31 Glucose 162 mg/dL (65-100) H 11/03/18 06:31 Calcium 8.4 mg/dL (8.4-10.2) 11/03/18 06:31 Active Medications - Current Medications Current Medications: Generic Name Dose Route Start Last Admin Trade Name Freq PRN Reason Stop Dose Admin Acetaminophen 650 mg 11/02/18 01:20 Tylenol PO Q4H PRN Pain MILD(1-3)/Fever >100.5/BOSE Albuterol 2.5 mg 11/03/18 01:24 Proventil IH Q4HRT PRN Shortness Of Breath Albuterol/Ipratropium 1 ampul 11/03/18 08:00 11/03/18 08:16 Duoneb *Not For Prn Use* IH 1 ampul TIDRT LETTY Administration Alprazolam 1 mg 11/02/18 17:01 11/03/18 12:02 Xanax PO 1 mg TID PRN Administration Anxiety Atorvastatin Calcium 10 mg 11/02/18 22:00 11/02/18 22:28 Lipitor PO 10 mg QHS LETTY Administration Diphenhydramine HCl 25 mg 11/02/18 23:53 11/03/18 00:26 Benadryl PO 25 mg Q8H PRN Administration Itching Levofloxacin/Dextrose 750 mg in 150 mls @ 100 mls/hr 11/02/18 22:00 11/02/18 22:19 Levaquin 750mg/150ml IV 100 mls/hr Q24H LETTY Administration Metoprolol Tartrate 25 mg 11/02/18 22:00 11/02/18 22:33 Lopressor PO 25 mg BID LETTY Administration Mirtazapine 22.5 mg 11/02/18 22:00 11/02/18 22:29 Remeron PO 22.5 mg QHS LETTY Administration Ondansetron HCl 4 mg 11/02/18 01:20 11/02/18 23:24 Zofran IV 4 mg Q8H PRN Administration Nausea And Vomiting Oxycodone HCl 5 mg 11/02/18 23:49 11/03/18 12:56 Roxicodone PO 5 mg Q4H PRN Administration Pain, Moderate (4-6) Oxycodone/Acetaminophen 1 tab 11/02/18 23:51 11/03/18 12:55 Percocet 5/325 PO 1 tab Q4H PRN Administration Pain, Moderate (4-6) Pantoprazole Sodium 20 mg 11/03/18 10:00 11/03/18 11:53 Protonix PO 20 mg QDAY LETTY Administration Polyethylene Glycol 17 gm 11/02/18 13:26 Miralax 3350 PO QDAY PRN Constipation Pregabalin 150 mg 11/02/18 22:00 11/03/18 11:52 Lyrica PO 150 mg BID LETTY Administration Pregabalin 50 mg 11/02/18 22:00 11/03/18 11:52 Lyrica PO 50 mg BID LETTY Administration Rivaroxaban 20 mg 11/02/18 18:00 11/02/18 18:25 Xarelto PO 20 mg DAILY LETTY Administration Protocol Sodium Chloride 10 ml 11/02/18 10:00 11/03/18 11:53 Sodium Chloride Flush Syringe 10 Ml IV 10 ml BID LETTY Administration Sodium Chloride 10 ml 11/02/18 01:20 Sodium Chloride Flush Syringe 10 Ml IV PRN PRN LINE FLUSH Trazodone HCl 100 mg 11/02/18 22:00 11/02/18 22:31 Desyrel PO Not Given QHS LETTY Venlafaxine HCl 225 mg 11/02/18 20:00 11/03/18 11:51 Effexor PO 225 mg QDAY LETTY Administration Ziprasidone 40 mg 11/02/18 22:00 11/02/18 22:28 Geodon PO 40 mg QHS LETTY Administration
[2018-11-03] MEDS: XARELTO PO SCH (13:38)
[2018-11-03] MEDS: REMERON PO SCH (21:47)
[2018-11-03] MEDS: DESYREL PO SCH (22:02)
[2018-11-03] MEDS: GEODON PO SCH (22:03)
[2018-11-03] MEDS: LEVAQUIN 750MG/150ML 750 MG/150 ML BAG IV SCH (22:57)
[2018-11-03] MEDS ORDERED: VASELINE LIP THERAPY TP PRN (23:47)
[2018-11-04] MEDS: ZOFRAN IV PRN ×3 (00:26→18:57)
--- NOTE | 2018-11-04 00:40 | Event Note ---
<EDNA WILSON - Last Filed: 11/04/18 00:30> Date: 11/03/18 I was called by nursing occupational therapy supervisor to go see Ms Sonja because pt requested to see a provider because she had not seen anyone all day and she had many questions and request for her Dr. Pt requested clarification of her Percocet order, she request Benadryl 25 IV only, she wants Dilaudid IV only and state that she will not take the PO Dilaudid because it doesn't relieve her pain and PO Benadryl doesn't help her itching. Pt was very anxious and argumentative and will not accept any alternative medication or treatment plan. <GEORGIE SALAZAR - Last Filed: 11/04/18 23:46> I agree with the above documentations
[2018-11-04] MEDS: DILAUDID IV PRN ×5 (03:49→22:45)
[2018-11-04] MEDS: BENADRYL IV PRN ×3 (03:52→18:25)
[2018-11-04] MEDS: PERCOCET 5/325 PO PRN ×2 (06:04→12:21)
[2018-11-04] MEDS: ROXICODONE PO PRN ×3 (06:05→20:29)
[2018-11-04] MEDS: DUONEB *Not for PRN Use IH SCH ×3 (08:07→20:40)
[2018-11-04] MEDS: XANAX PO PRN ×2 (09:02→18:57)
[2018-11-04] MEDS: LYRICA PO SCH ×4 (09:57→21:46)
[2018-11-04] MEDS: EFFEXOR PO SCH (09:57)
[2018-11-04] MEDS: PROTONIX PO SCH (09:58)
[2018-11-04] MEDS: XARELTO PO SCH (09:59)
[2018-11-04] MEDS: SODIUM CHLORIDE FLUSH SYRINGE 10 ML IV SCH ×2 (10:00→21:48)
[2018-11-04] MEDS: LOPRESSOR PO SCH ×2 (12:21→21:48)
[2018-11-04] MEDS ORDERED: ROXICODONE PO PRN (13:32)
[2018-11-04] MEDS: DIFLUCAN PO SCH (21:44)
[2018-11-04] MEDS: GEODON PO SCH (21:44)
[2018-11-04] MEDS: REMERON PO SCH (21:46)
[2018-11-04] MEDS: CLOTRIMAZOLE/BETAMETHASONE TP SCH (21:47)
[2018-11-04] MEDS: DESYREL PO SCH (22:42)
[2018-11-04] MEDS: LEVAQUIN 750MG/150ML 750 MG/150 ML BAG IV SCH (22:45)
[2018-11-05] MEDS: BENADRYL IV PRN ×2 (02:03→08:15)
[2018-11-05] MEDS: ROXICODONE PO PRN ×2 (02:04→08:05)
[2018-11-05] MEDS: DILAUDID IV PRN (04:15)
[2018-11-05] MEDS: ZOFRAN IV PRN (04:19)
[2018-11-05] MEDS: DUONEB *Not for PRN Use IH SCH ×3 (08:41→19:47)
--- NOTE | 2018-11-05 08:56 | Progress Note ---
Assessment and Plan Assessment and plan: 47 f who pw sob and cough, [facility]; htn, bipolar, protein s def, hx of PE, Bilateral community-acquired pneumonia Hypertension Bipolar Protein S deficiency acute hypoxic resp failure plan abx, cont home meds oxygen as needed Subjective Date of service: 11/04/18 Principal diagnosis: CAP Interval history: Afebrile Going to lobby frequently to smoke Objective - Constitutional Vitals: Vital Signs - 12hr 11/04/18 11/04/18 11/04/18 21:29 21:36 22:45 Temperature 98.0 F Pulse Rate 111 H Respiratory 18 20 18 Rate Respiratory Rate [Left Shoulder] Blood Pressure 127/79 O2 Sat by Pulse 94 Oximetry 11/04/18 11/04/18 11/05/18 23:01 23:15 02:04 Temperature Pulse Rate Respiratory 18 18 Rate Respiratory 18 Rate [Left Shoulder] Blood Pressure O2 Sat by Pulse Oximetry 11/05/18 11/05/18 11/05/18 03:04 04:45 05:49 Temperature 97.3 F L Pulse Rate 106 H Respiratory 18 18 18 Rate Respiratory Rate [Left Shoulder] Blood Pressure 138/90 O2 Sat by Pulse 94 Oximetry General appearance: Present: no acute distress, well-nourished - EENT Eyes: PERRL, EOM intact ENT: hearing intact, clear oral mucosa Ears: bilateral: normal - Neck Neck: supple, normal ROM - Respiratory Respiratory effort: normal Respiratory: bilateral: CTA - Breasts Breasts: normal - Cardiovascular Heart rate: 78 Rhythm: regular Heart Sounds: Present: S1 & S2. Absent: gallop, rub Extremities: no ischemia, pulses intact, No edema, normal color, Full ROM, abnormal (Bilateral AKA) - Gastrointestinal General gastrointestinal: Present: soft, non-tender, non-distended, normal bowel sounds - Genitourinary Female genitourinary: normal - Integumentary Integumentary: clear, warm, dry - Musculoskeletal Musculoskeletal: 1, strength equal bilaterally - Neurologic Neurologic: moves all extremities - Psychiatric Psychiatric: memory intact, appropriate mood/affect, intact judgment & insight - Labs CBC & Chem 7: 11/03/18 06:31 11/03/18 06:31
[2018-11-05] MEDS: PROTONIX PO SCH (09:06)
[2018-11-05] MEDS: XARELTO PO SCH (09:06)
[2018-11-05] MEDS: XANAX PO PRN ×3 (09:06→22:46)
[2018-11-05] MEDS: LOPRESSOR PO SCH ×2 (09:06→22:46)
[2018-11-05] MEDS: LYRICA PO SCH ×4 (09:06→22:46)
[2018-11-05] MEDS: EFFEXOR PO SCH (09:07)
[2018-11-05] MEDS: SODIUM CHLORIDE FLUSH SYRINGE 10 ML IV SCH (09:07)
[2018-11-05] MEDS: DIFLUCAN PO SCH (09:07)
[2018-11-05] MEDS ORDERED: DILAUDID IV ONE (09:18)
--- NOTE | 2018-11-05 09:52 | Discharge Summary ---
Providers - Providers Date of Admission: 11/02/18 03:17 Date of discharge: 11/05/18 Attending physician: KEITH AC 11/02/18 13:26 Physical Therapy Evaluation and Treat [CONS] Routine Comment: Reason For Exam: ataxia 11/03/18 15:56 Consult Geriatric-Psych [CONS] Routine Consulting Provider: Reason For Exam: Bipolar Primary care physician: [facility] Hospitalization Condition: Stable Hospital course: Bilateral community-acquired pneumonia Hypertension--controlled Bipolar-cont antipsychotics Protein S deficiency acute hypoxic resp failure Disposition: DC- TO HOME OR SELFCARE Core Measure Documentation - Palliative Care Palliative Care/ Comfort Measures: Not Applicable - Core Measures Any of the following diagnoses?: none Exam - Constitutional Vitals: Temp Pulse Resp BP Pulse Ox 97.3 F L 106 H 18 138/90 94 11/05/18 05:49 11/05/18 05:49 11/05/18 05:49 11/05/18 05:49 11/05/18 05:49 General appearance: Present: no acute distress, well-nourished - EENT Eyes: Present: PERRL ENT: hearing intact, clear oral mucosa - Neck Neck: Present: supple, normal ROM - Respiratory Respiratory effort: normal Respiratory: bilateral: CTA - Cardiovascular Heart rate: 78 Rhythm: regular Heart Sounds: Present: S1 & S2. Absent: rub, click - Extremities Extremities: no ischemia, pulses intact, pulses symmetrical, No edema, abnormal (Bilateral AKA) Peripheral Pulses: within normal limits - Abdominal General gastrointestinal: Present: soft, non-tender, non-distended, normal bowel sounds Female genitourinary: Present: normal - Rectal Rectal Exam: deferred - Integumentary Integumentary: Present: clear, warm, dry - Musculoskeletal Musculoskeletal: gait normal, strength equal bilaterally - Psychiatric Psychiatric: appropriate mood/affect, intact judgment & insight - Neurologic Neurologic: CNII-XII intact, moves all extremities - Allied Health Allied health notes reviewed: nursing Plan Activity: no restrictions Diet: low fat, low cholesterol, low salt Follow up with: PRIMARY CARE, [Primary Care Provider] - 3-5 Days
[2018-11-05] MEDS ORDERED: BENADRYL PO PRN (10:59)
[2018-11-05] MEDS ORDERED: ZOFRAN ODT PO PRN (11:20)
[2018-11-05] MEDS: CLOTRIMAZOLE/BETAMETHASONE TP SCH (18:33)
[2018-11-05] MEDS ORDERED: LEVAQUIN PO SCH (22:00)
[2018-11-05] MEDS ORDERED: DILAUDID IV PRN (22:21)
[2018-11-05] MEDS ORDERED: BENADRYL IV PRN (22:23)
[2018-11-05] MEDS ORDERED: ROXICODONE PO PRN (22:25)
[2018-11-05] MEDS ORDERED: PERCOCET 5/325 PO PRN (22:27)
[2018-11-05] MEDS: REMERON PO SCH (22:45)
[2018-11-05] MEDS: GEODON PO SCH (22:45)
[2018-11-05] MEDS: DESYREL PO SCH (22:52)
--- NOTE | 2018-11-06 08:21 | Progress Note ---
Assessment and Plan Assessment and plan: 47 f who pw sob and cough, [facility]; htn, bipolar, protein s def, hx of PE, Bilateral community-acquired pneumonia--improved Hypertension--- controlled Bipolar--- stable Protein S deficiency--- continue Xarelto acute hypoxic resp failure--improved plan Oral abx, cont home meds oxygen as needed Patient was discharged but apealed discharge Pain seeking behavior Subjective Date of service: 11/05/18 Principal diagnosis: CAP Interval history: Afebrile Going to [employer] frequently to smoke Objective - Constitutional Vitals: Vital Signs - 12hr 11/05/18 22:37 Temperature 99.2 F Pulse Rate 99 H Respiratory 20 Rate Blood Pressure 110/69 O2 Sat by Pulse 92 Oximetry General appearance: Present: no acute distress, well-nourished - EENT Eyes: PERRL, EOM intact ENT: hearing intact, clear oral mucosa Ears: bilateral: normal - Neck Neck: supple, normal ROM - Respiratory Respiratory effort: normal Respiratory: bilateral: CTA - Breasts Breasts: normal - Cardiovascular Rhythm: regular Heart Sounds: Present: S1 & S2. Absent: gallop, rub Extremities: pulses intact, No edema, normal color, Full ROM - Gastrointestinal General gastrointestinal: Present: soft, non-tender, non-distended, normal bowel sounds - Genitourinary Female genitourinary: normal - Integumentary Integumentary: clear, warm, dry - Musculoskeletal Musculoskeletal: 1, strength equal bilaterally - Neurologic Neurologic: moves all extremities - Psychiatric Psychiatric: memory intact, appropriate mood/affect, intact judgment & insight - Labs CBC & Chem 7: 11/03/18 06:31 11/03/18 06:31
[2018-11-06] MEDS: DUONEB *Not for PRN Use IH SCH ×2 (09:27→13:41)
[2018-11-06] MEDS: DIFLUCAN PO SCH (11:30)
[2018-11-06] MEDS: LYRICA PO SCH ×2 (11:31→11:34)
[2018-11-06] MEDS: LOPRESSOR PO SCH (11:34)
[2018-11-06] MEDS: PROTONIX PO SCH (11:35)
[2018-11-06] MEDS: EFFEXOR PO SCH (11:35)
[2018-11-06] MEDS: CLOTRIMAZOLE/BETAMETHASONE TP SCH (11:36)
[2018-11-06 11:37] VITALS: BP 103/80
[2018-11-06] MEDS: XARELTO PO SCH (11:37)
[2018-11-06] MEDS: SODIUM CHLORIDE FLUSH SYRINGE 10 ML IV SCH (11:37)
[2018-11-06] MEDS: XANAX PO PRN (11:42)
--- NOTE | 2018-11-06 15:02 | Consultation ---
History of Present Illness - Reason for Consult Consult date: 11/06/18 Reason for consult: Initial Psychiatric Evaluation - History of Present Psychiatric Illness Patient is a 47 year old female who presents to [facility] with bilateral [id number] amputations secondary to DVTs, bipolar disorder. Patient presented to the emergency room via EMS for difficulty breathing. Psychiatry was consulted to complete a mental health evaluation so that patient can return to [facility] [place]. Patient has a PPHx . Today the patient is Current Psychiatric Medications: Past Psychiatric History: Past Medication Trials: History of Drug/ Alcohol Abuse: Family History of Psychiatric Illness/Substance Abuse: Social History: Appearance: calm, cooperative Behavior: regular eye contact Speech: regular rate with loud tone Mood:: "okay" Affect: Thought Process: l Thought Content: Motor Activity: Cognition: A/O x3 Insight: poor Judgment: poor Assessment and plan: Impression: Today the patient was calm and cooperative during the assessment. DDx: Recommendation/Plan: Will staff with Dr. Jori Yin. Medications and Allergies Allergies Allergy/AdvReac Type Severity Reaction Status Date / Time acetaminophen [From Lortab] Allergy Unknown Verified 10/02/18 18:07 hydrocodone [From Lortab] Allergy Unknown Verified 10/02/18 18:07 morphine Allergy Unknown Verified 10/02/18 18:07 Sulfa (Sulfonamide Allergy Unknown Verified 10/02/18 18:07 Antibiotics) Home Medications Medication Instructions Recorded Confirmed Last Taken Type Effexor 225 mg PO DAILY 11/02/18 11/02/18 Unknown History Lipitor 10 mg PO QHS 11/02/18 11/02/18 Unknown History Lyrica 200 mg PO BID 11/02/18 11/02/18 Unknown History Metoprolol 25 mg PO BID 11/02/18 11/02/18 Unknown History Protonix 20 mg PO DAILY 11/02/18 11/02/18 Unknown History Remeron 15mg TAB 22.5 mg PO QHS 11/02/18 11/02/18 Unknown History Ziprasidone [Geodon] 40 mg PO QHS 11/02/18 11/02/18 Unknown History traZODone 100 mg PO QHS 11/02/18 11/02/18 Unknown History ALPRAZolam [Xanax TAB] 1 mg PO TID PRN 8 Days #24 tablet 11/05/18 Unknown Rx Clotrimazole/Betamethasone 1 applic TP BID #1 tube 11/05/18 Unknown Rx Mirtazapine [Remeron 15mg TAB] 22.5 mg PO QHS #30 tablet 11/05/18 Unknown Rx Rivaroxaban [Xarelto] 20 mg PO DAILY #30 tablet 11/05/18 Unknown Rx levoFLOXacin [Levaquin] 750 mg PO QDAY #8 tablet 11/05/18 Unknown Rx oxyCODONE [roxiCODONE] 10 mg PO Q4H PRN #20 tablet 11/05/18 Unknown Rx Active Meds: Active Medications Acetaminophen (Tylenol) 650 mg PO Q4H PRN PRN Reason: Pain MILD(1-3)/Fever >100.5/BOSE Albuterol (Proventil) 2.5 mg IH Q4HRT PRN PRN Reason: Shortness Of Breath Albuterol/Ipratropium (Duoneb *Not For Prn Use*) 1 ampul IH TIDRT [facility] Last Admin: 11/06/18 13:41 Dose: 1 ampul Documented by: Alprazolam (Xanax) 1 mg PO TID PRN PRN Reason: Anxiety Last Admin: 11/06/18 11:42 Dose: 1 mg Documented by: Atorvastatin Calcium (Lipitor) 10 mg PO QHS [facility] Last Admin: 11/05/18 22:45 Dose: 10 mg Documented by: Clotrimazole (Clotrimazole/Betamethasone) 1 applic TP BID [facility] Last Admin: 11/06/18 11:36 Dose: Not Given Documented by: Diphenhydramine HCl (Benadryl) 25 mg PO Q6H PRN PRN Reason: Itching Last Admin: 11/05/18 12:24 Dose: 25 mg Documented by: Diphenhydramine HCl (Benadryl) 25 mg IV Q6H PRN PRN Reason: Itching Fluconazole (Diflucan) 150 mg PO QDAY [facility] Stop: 11/06/18 19:59 Last Admin: 11/06/18 11:30 Dose: 150 mg Documented by: Hydrophilic Ointment (Vaseline Lip Therapy) 1 applic TP DIRECT PRN PRN Reason: Dry Lips Last Admin: 11/04/18 18:24 Dose: 1 applic Documented by: Levofloxacin (Levaquin) 750 mg PO QHS [facility] Last Admin: 11/05/18 22:46 Dose: 750 mg Documented by: Metoprolol Tartrate (Lopressor) 25 mg PO BID [facility] Last Admin: 11/06/18 11:34 Dose: 25 mg Documented by: Mirtazapine (Remeron) 22.5 mg PO QHS [facility] Last Admin: 11/05/18 22:45 Dose: 22.5 mg Documented by: Ondansetron HCl (Zofran Odt) 4 mg PO Q8H PRN PRN Reason: Nausea And Vomiting Last Admin: 11/05/18 12:24 Dose: 4 mg Documented by: Oxycodone HCl (Roxicodone) 5 mg PO Q6H PRN PRN Reason: Pain, Moderate (4-6) Pantoprazole Sodium (Protonix) 20 mg PO QDAY [facility] Last Admin: 11/06/18 11:35 Dose: 20 mg Documented by: Polyethylene Glycol (Miralax 3350) 17 gm PO QDAY PRN PRN Reason: Constipation Last Admin: 11/04/18 09:59 Dose: 17 gm Documented by: Pregabalin (Lyrica) 150 mg PO BID [facility] Last Admin: 11/06/18 11:34 Dose: 150 mg Documented by: Pregabalin (Lyrica) 50 mg PO BID [facility] Last Admin: 11/06/18 11:31 Dose: 50 mg Documented by: Rivaroxaban (Xarelto) 20 mg PO DAILY [facility]; Protocol Last Admin: 11/06/18 11:37 Dose: 20 mg Documented by: Sodium Chloride (Sodium Chloride Flush Syringe 10 Ml) 10 ml IV BID [facility] Last Admin: 11/06/18 11:37 Dose: Not Given Documented by: Sodium Chloride (Sodium Chloride Flush Syringe 10 Ml) 10 ml IV PRN PRN PRN Reason: LINE FLUSH Trazodone HCl (Desyrel) 100 mg PO QHS [facility] Last Admin: 11/05/18 22:52 Dose: Not Given Documented by: Venlafaxine HCl (Effexor) 225 mg PO QDAY [facility] Last Admin: 11/06/18 11:35 Dose: 225 mg Documented by: Ziprasidone (Geodon) 40 mg PO QHS [facility] Last Admin: 11/05/18 22:45 Dose: 40 mg Documented by: Mental Status Exam - Vital signs Last Vital Signs Temp 98.2 F 06/01/19 11:32 Pulse 107 H 11/06/18 13:43 Resp 16 11/06/18 13:43 BP 103/80 11/06/18 11:34 Pulse Ox 96 11/06/18 11:32 Results Result Diagrams: 11/03/18 06:31 11/03/18 06:31 All other labs normal.
== END 2018-11-06 16:54 | disposition home or self-care (01) | DRG 193 ==
LOC: ED 22:59 → 3A 11-02 03:17
PROVIDERS: ADMIT Internal Medicine; ATTEND Internal Medicine
DX: J18.9 Pneumonia, unspecified organism (principal); J96.01 Acute respiratory failure with hypoxia; D68.59 Other primary thrombophilia; I10 Essential (primary) hypertension; G89.29 Other chronic pain; F17.200 Nicotine dependence, unspecified, uncomplicated; F31.9 Bipolar disorder, unspecified; Z86.711 Personal history of pulmonary embolism; Z86.718 Personal history of other venous thrombosis and embolism; Z89.612 Acquired absence of left leg above knee; Z82.49 Family history of ischemic heart disease and other diseases of the circulatory system; Z89.611 Acquired absence of right leg above knee; Z88.5 Allergy status to narcotic agent; Z88.2 Allergy status to sulfonamides; Z79.899 Other long term (current) drug therapy; Z90.49 Acquired absence of other specified parts of digestive tract; Z98.51 Tubal ligation status
CPT/HCPCS: 36415; 71045; 80048; 85007; 85025; 87040; 93005; 93010; 94640; 94760; 96365; G0378; A9270-GY; J1170; J1200; J1650; J1956; J2405; Q0162

== ENCOUNTER 2018-11-13 14:20 | Emergency (ER) | payer MEDICARE ==
[2018-11-13 15:12] VITALS: BP 95/75
--- NOTE | 2018-11-13 15:46 | XRay Report ---
PROCEDURE: XR CHEST 1V AP TECHNIQUE: Chest radiograph, AP view. HISTORY: Chest Pain COMPARISONS: Chest x-ray November 01, 2018. FINDINGS: Cardiac silhouette is within normal limits. Aortic calcifications. There is no effusion. There is no pneumothorax. There is no consolidation. There are no suspicious osseous lesions. IMPRESSION: * No acute cardiopulmonary findings. This document is electronically signed by Carlos Castanon MD., November 13 2018 03:44:44 PM ET
[2018-11-13 16:20] LABS: Hematocrit 31.4 % (30.3-42.9); Hemoglobin 10.4 gm/dl (10.1-14.3); Mean Corpuscular HGB Conc 33 % (30-34); Mean Corpuscular Volume 86 fl (79-97); Platelet Count 276 K/mm3 (140-440); Red Blood Count 3.66 M/mm3 (3.65-5.03); Red Cell Distribution Width 17.6 % (13.2-15.2)
--- NOTE | 2018-11-13 16:21 | Emergency Department Report ---
ED General Adult HPI - General Chief complaint: Dyspnea/Respdistress Stated complaint: JUAN ANTONIO Time Seen by Provider: 11/13/18 16:04 Source: patient, EMS Mode of arrival: Stretcher Limitations: Physical Limitation - History of Present Illness Initial comments: Patient is 47 years old female, familiar to me with multiple ER visits. 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 Patient also have a history of bipolar disorder and currently denying any suicidal or homicidal ideation. Patient also had history of chronic pain followed by pain clinic. Patient presented to the ER via EMS stating that she is having difficulty in breathing and generalized body swelling. Patient denied any fever or chills. She also denied any chest pain or cough. During my examination patient kept asking for Percocet when I informed the patient that I can give her and another medicine to help with the pain patient became very agitated and became very loud. Patient exhibiting a pain medicine seeking behavior. Severity scale (0 -10): 0 - Related Data Home Medications Medication Instructions Recorded Confirmed Last Taken Effexor 225 mg PO DAILY 11/02/18 11/02/18 Unknown Lipitor 10 mg PO QHS 11/02/18 11/02/18 Unknown Lyrica 200 mg PO BID 11/02/18 11/02/18 Unknown Metoprolol 25 mg PO BID 11/02/18 11/02/18 Unknown Protonix 20 mg PO DAILY 11/02/18 11/02/18 Unknown Remeron 15mg TAB 22.5 mg PO QHS 11/02/18 11/02/18 Unknown Ziprasidone [Geodon] 40 mg PO QHS 11/02/18 11/02/18 Unknown traZODone 100 mg PO QHS 11/02/18 11/02/18 Unknown Previous Rx's Medication Instructions Recorded Last Taken Type ALPRAZolam [Xanax TAB] 1 mg PO TID PRN 8 Days #24 tablet 11/05/18 Unknown Rx Clotrimazole/Betamethasone 1 applic TP BID #1 tube 11/05/18 Unknown Rx Mirtazapine [Remeron 15mg TAB] 22.5 mg PO QHS #30 tablet 11/05/18 Unknown Rx Rivaroxaban [Xarelto] 20 mg PO DAILY #30 tablet 11/05/18 Unknown Rx levoFLOXacin [Levaquin] 750 mg PO QDAY #8 tablet 11/05/18 Unknown Rx oxyCODONE [roxiCODONE] 10 mg PO Q4H PRN #20 tablet 11/05/18 Unknown Rx Allergies Allergy/AdvReac Type Severity Reaction Status Date / Time acetaminophen [From Lortab] Allergy Unknown Verified 10/02/18 18:07 hydrocodone [From Lortab] Allergy Unknown Verified 10/02/18 18:07 morphine Allergy Unknown Verified 10/02/18 18:07 Sulfa (Sulfonamide Allergy Unknown Verified 10/02/18 18:07 Antibiotics) ED Review of Systems ROS: Stated complaint: JUAN ANTONIO Other details as noted in HPI Comment: All other systems reviewed and negative Constitutional: denies: chills, diaphoresis Respiratory: shortness of breath. denies: cough, orthopnea, SOB with exertion, SOB at rest, wheezing Cardiovascular: denies: chest pain, palpitations Gastrointestinal: denies: abdominal pain, nausea, vomiting Neurological: denies: headache Psychiatric: denies: depression, auditory hallucinations, visual hallucinations, homicidal thoughts, suicidal thoughts ED Past Medical Hx - Past Medical History Hx Hypertension: Yes Hx Psychiatric Treatment: Yes (bipolar) Hx Asthma: No Additional medical history: protein s deficiency - Surgical History Hx Cholecystectomy: Yes Additional Surgical History: [place] AKA, tubal ligation, tumor removal. - Social History Smoking Status: Current Every Day Smoker Substance Use Type: None - Medications Home Medications: Home Medications Medication Instructions Recorded Confirmed Last Taken Type Effexor 225 mg PO DAILY 11/02/18 11/02/18 Unknown History Lipitor 10 mg PO QHS 11/02/18 11/02/18 Unknown History Lyrica 200 mg PO BID 11/02/18 11/02/18 Unknown History Metoprolol 25 mg PO BID 11/02/18 11/02/18 Unknown History Protonix 20 mg PO DAILY 11/02/18 11/02/18 Unknown History Remeron 15mg TAB 22.5 mg PO QHS 11/02/18 11/02/18 Unknown History Ziprasidone [Geodon] 40 mg PO QHS 11/02/18 11/02/18 Unknown History traZODone 100 mg PO QHS 11/02/18 11/02/18 Unknown History ALPRAZolam [Xanax TAB] 1 mg PO TID PRN 8 Days #24 tablet 11/05/18 Unknown Rx Clotrimazole/Betamethasone 1 applic TP BID #1 tube 11/05/18 Unknown Rx Mirtazapine [Remeron 15mg TAB] 22.5 mg PO QHS #30 tablet 11/05/18 Unknown Rx Rivaroxaban [Xarelto] 20 mg PO DAILY #30 tablet 11/05/18 Unknown Rx levoFLOXacin [Levaquin] 750 mg PO QDAY #8 tablet 11/05/18 Unknown Rx oxyCODONE [roxiCODONE] 10 mg PO Q4H PRN #20 tablet 11/05/18 Unknown Rx ED Physical Exam - General Limitations: Physical Limitation General appearance: alert, in no apparent distress - Head Head exam: Present: atraumatic, normocephalic, normal inspection - Eye Eye exam: Present: normal appearance - ENT ENT exam: Present: normal exam, normal orophraynx, mucous membranes moist - Neck Neck exam: Present: normal inspection, full ROM. Absent: tenderness, meningismus, lymphadenopathy, thyromegaly - Respiratory Respiratory exam: Present: normal lung sounds bilaterally - Cardiovascular Cardiovascular Exam: Present: regular rate, normal rhythm, normal heart sounds - GI/Abdominal GI/Abdominal exam: Present: soft, normal bowel sounds. Absent: distended, tenderness, guarding, rebound, rigid, mass, bruit, pulsatile mass - Neurological Exam Neurological exam: Present: alert, oriented X3, CN II-XII intact - Skin Skin exam: Present: warm, intact, normal color ED Course Vital Signs 11/13/18 11/13/18 11/13/18 14:58 15:16 17:44 Temperature 98.2 F 98.2 F Pulse Rate 108 H 108 H Respiratory 18 18 20 Rate Blood Pressure 95/75 Blood Pressure 95/75 [Left] O2 Sat by Pulse 97 98 98 Oximetry ED Medical Decision Making - Lab Data Result diagrams: 11/13/18 16:00 11/13/18 16:00 - EKG Data -: EKG Interpreted by Me EKG shows normal: sinus rhythm Rate: normal - EKG Data Interpretation: no acute changes - Radiology Data Radiology results: report reviewed Chest x-ray is negative for acute finding. - Medical Decision Making Patient is 47 years old female, familiar to me with multiple ER visits. Patient has history of clotting disorder with history of PE and bilateral above knee a mputation due to DVTs. Patient also have a history of bipolar disorder and currently denying any suicidal or homicidal ideation. Patient also had history of chronic pain followed by pain clinic. Patient presented to the ER via EMS stating that she is having difficulty in breathing and generalized body swelling. Patient denied any fever or chills. She also denied any chest pain or cough. During my examination patient kept asking for Percocet when I informed the patient that I can give her and another medicine to help with the pain patient became very agitated and became very loud. Patient exhibiting a pain medicine seeking behavior. EKG was no ST elevation. Chest x-ray is unremarkable. Labs reviewed and is negative with no evidence of infection. Pro BNP is 19 with no evidence of congestive heart failure. No clinical evidence of pulmonary embolism. Patient will be discharged home to follow-up with her primary care physician for further management. Patient also advised to return to the ER if symptoms are not improved. Critical care attestation.: If time is entered above; I have spent that time in minutes in the direct care of this critically ill patient, excluding procedure time. ED Disposition Clinical Impression: Drug-seeking behavior, Shortness of breath, Peripheral edema Disposition: DC-01 TO HOME OR SELFCARE Is pt being admited?: No Condition: Stable Instructions: Dyspnea (ED) Additional Instructions: Patient can take her pain medicine when returned. Patient didn't recieved narcotics in the ER. Referrals: KEENAN ST MD [Primary Care Provider] - 3-5 Days
[2018-11-13] MEDS ORDERED: TORADOL IV ONE (16:24)
[2018-11-13 16:41] LABS: BUN/Creatinine Ratio 11; Blood Urea Nitrogen 10 mg/dL (7-17); Calcium 8.6 mg/dL (8.4-10.2); Hemolysis Index 2
[2018-11-13 17:06] LABS: INR 0.95 (0.87-1.13)
[2018-11-13 17:16] LABS: Basophils % (Manual) 0 % (0.0-1.8); Total Cells Counted 100
[2018-11-13 17:17] LABS: Anisocytosis 1+; Hypochromasia 1+
[2018-11-13 17:18] LABS: Ovalocytes Few; Platelet Estimate Consistent w Auto
[2018-11-13 17:32] LABS: Partial Thromboplastin Time 28.3 Sec. (24.2-36.6)
== END 2018-11-13 18:20 | disposition home or self-care (01) ==
LOC: ED 14:20
DX: R60.9 Edema, unspecified (principal); R06.02 Shortness of breath; Z76.5 Malingerer [conscious simulation]; I10 Essential (primary) hypertension; F17.200 Nicotine dependence, unspecified, uncomplicated; G89.29 Other chronic pain; F32.9 Major depressive disorder, single episode, unspecified; Z86.718 Personal history of other venous thrombosis and embolism; Z79.01 Long term (current) use of anticoagulants; Z86.711 Personal history of pulmonary embolism; Z89.612 Acquired absence of left leg above knee; Z89.611 Acquired absence of right leg above knee; Z88.2 Allergy status to sulfonamides; Z88.5 Allergy status to narcotic agent; Z90.49 Acquired absence of other specified parts of digestive tract; Z98.51 Tubal ligation status; Z79.899 Other long term (current) drug therapy; Z88.6 Allergy status to analgesic agent
CPT/HCPCS: 36415; 71045; 80048; 83880; 84484; 85007; 85025; 85610; 85730; 93005; 93010; 96374; 99285; J1885

== ENCOUNTER 2021-08-16 18:21 | Emergency (ER) | payer MEDICARE ==
--- NOTE | 2021-08-16 18:55 | Emergency Department Report ---
ED Psych HPI - General Chief Complaint: Altered Mental Status Stated Complaint: Altered Mental Status Time Seen by Provider: 08/16/21 18:50 Source: patient, EMS Mode of arrival: Stretcher Limitations: Physical Limitation - History of Present Illness Initial Comments: Patient is a 50-year-old female who presents emergency room via EMS for homicidal ideations. Report received from EMS. Patient is coming from a local [facility]. The [facility]'s medical clinic manager signed a 1013 because the patient was smoking in her room. Patient states that she never made a homicidal threat. Patient states she was discharged to enjoy her cigarettes. The medical clinic manager states that because she knew that there was oxygen in the facility that this is considered a homicidal threat. Patient presents to the ER with a signed 1013. Patient states that she was just walking in her room because she could not get outside because of not having legs. Patient denies homicidal ideation. Patient denies suicidal ideations. Patient denies depression. Patient denies recent travel. Patient denies recent international travel. Patient denies exposure to the novel coronavirus. Patient denies sick contacts. Patient denies fever and chills. Patient denies cough. Patient denies diarrhea. Patient denies coming in contact with anybody with symptoms of the no qamar coronavirus. Complaint: other -: Sudden Associated Psychiatric Symptoms: none History of same: No Improves With: none Worsens With: none Associated Symptoms: denies other symptoms. denies: confusion, headache, short ness of breath, nausea, vomiting, syncope, insomnia Treatments Prior to Arrival: none - Related Data Home Medications Medication Instructions Recorded Confirmed Last Taken Effexor 225 mg PO DAILY 11/02/18 11/02/18 Unknown Lipitor 10 mg PO QHS 11/02/18 11/02/18 Unknown Lyrica 200 mg PO BID 11/02/18 11/02/18 Unknown Metoprolol 25 mg PO BID 11/02/18 11/02/18 Unknown Protonix 20 mg PO DAILY 11/02/18 11/02/18 Unknown Remeron 15mg TAB 22.5 mg PO QHS 11/02/18 11/02/18 Unknown Ziprasidone [Geodon] 40 mg PO QHS 11/02/18 11/02/18 Unknown traZODone 100 mg PO QHS 11/02/18 11/02/18 Unknown Previous Rx's Medication Instructions Recorded Last Taken Type ALPRAZolam [Xanax TAB] 1 mg PO TID PRN 8 Days #24 tablet 11/05/18 Unknown Rx Clotrimazole/Betamethasone 1 applic TP BID #1 tube 11/05/18 Unknown Rx Mirtazapine [Remeron 15mg TAB] 22.5 mg PO QHS #30 tablet 11/05/18 Unknown Rx Rivaroxaban [Xarelto] 20 mg PO DAILY #30 tablet 11/05/18 Unknown Rx levoFLOXacin [Levaquin] 750 mg PO QDAY #8 tablet 11/05/18 Unknown Rx oxyCODONE [roxiCODONE] 10 mg PO Q4H PRN #20 tablet 11/05/18 Unknown Rx Allergies Allergy/AdvReac Type Severity Reaction Status Date / Time acetaminophen [From Lortab] Allergy Unknown Verified 10/02/18 18:07 hydrocodone [From Lortab] Allergy Unknown Verified 10/02/18 18:07 morphine Allergy Unknown Verified 10/02/18 18:07 Sulfa (Sulfonamide Allergy Unknown Verified 10/02/18 18:07 Antibiotics) ED Review of Systems ROS: Stated complaint: Altered Mental Status Other details as noted in HPI Constitutional: denies: chills, fever Eyes: denies: eye pain, eye discharge, vision change ENT: denies: ear pain, throat pain Respiratory: denies: cough, shortness of breath, wheezing Cardiovascular: denies: chest pain, palpitations Endocrine: no symptoms reported Gastrointestinal: denies: abdominal pain, nausea, diarrhea Genitourinary: denies: urgency, dysuria, discharge Musculoskeletal: denies: back pain, joint swelling, arthralgia Skin: denies: rash, lesions Neurological: denies: headache, weakness, paresthesias Psychiatric: denies: anxiety, depression Hematological/Lymphatic: denies: easy bleeding, easy bruising ED Past Medical Hx - Past Medical History Previous Medical History?: Yes Hx Hypertension: Yes Hx Psychiatric Treatment: Yes (bipolar) Hx Asthma: No Additional medical history: protein s deficiency - Surgical History Past Surgical History?: Yes Hx Cholecystectomy: Yes Additional Surgical History: [place] AKA, tubal ligation, tumor removal. - Family History Family history: no significant - Social History Smoking Status: Current Every Day Smoker Substance Use Type: None - Medications Home Medications: Home Medications Medication Instructions Recorded Confirmed Last Taken Type Effexor 225 mg PO DAILY 11/02/18 11/02/18 Unknown History Lipitor 10 mg PO QHS 11/02/18 11/02/18 Unknown History Lyrica 200 mg PO BID 11/02/18 11/02/18 Unknown History Metoprolol 25 mg PO BID 11/02/18 11/02/18 Unknown History Protonix 20 mg PO DAILY 11/02/18 11/02/18 Unknown History Remeron 15mg TAB 22.5 mg PO QHS 11/02/18 11/02/18 Unknown History Ziprasidone [Geodon] 40 mg PO QHS 11/02/18 11/02/18 Unknown History traZODone 100 mg PO QHS 11/02/18 11/02/18 Unknown History ALPRAZolam [Xanax TAB] 1 mg PO TID PRN 8 Days #24 tablet 11/05/18 Unknown Rx Clotrimazole/Betamethasone 1 applic TP BID #1 tube 11/05/18 Unknown Rx Mirtazapine [Remeron 15mg TAB] 22.5 mg PO QHS #30 tablet 11/05/18 Unknown Rx Rivaroxaban [Xarelto] 20 mg PO DAILY #30 tablet 11/05/18 Unknown Rx levoFLOXacin [Levaquin] 750 mg PO QDAY #8 tablet 11/05/18 Unknown Rx oxyCODONE [roxiCODONE] 10 mg PO Q4H PRN #20 tablet 11/05/18 Unknown Rx ED Physical Exam - General Limitations: No Limitations General appearance: alert, in no apparent distress - Head Head exam: Present: atraumatic, normocephalic - Eye Eye exam: Present: normal appearance - ENT ENT exam: Present: mucous membranes moist - Neck Neck exam: Present: normal inspection - Respiratory Respiratory exam: Present: normal lung sounds bilaterally. Absent: respiratory distress - Cardiovascular Cardiovascular Exam: Present: regular rate, normal rhythm. Absent: systolic murmur, diastolic murmur, rubs, gallop - GI/Abdominal GI/Abdominal exam: Present: soft, normal bowel sounds - Extremities Exam Extremities exam: Present: normal inspection - Back Exam Back exam: Present: normal inspection - Neurological Exam Neurological exam: Present: alert, oriented X3 - Psychiatric Psychiatric exam: Present: normal affect, normal mood - Skin Skin exam: Present: warm, dry, intact, normal color. Absent: rash ED Course Vital Signs 08/16/21 18:26 Temperature 98.4 F Pulse Rate 100 H Respiratory 16 Rate Blood Pressure 130/94 [Right] O2 Sat by Pulse 98 Oximetry - Reevaluation(s) Reevaluation #1: Patient is medically cleared however the patient has been discharged from our facility due to her smoking in the room. The facility faxed over immediate discharge papers. I discussed all results and clinical findings with patient. I discussed plan of care with patient. Patient agrees with plan of care. Patient is stable for discharge. Patient will be discharged home once social studies department chair has aided the patient in finding a new fci.. Patient given discharge instructions. Patient voiced understanding of discharge instructions. 08/16/21 21:45 - Consultations Consultation #1: I discussed the case with the mental health team and they agree that the patient does not require 1013. 08/16/21 21:35 ED Medical Decision Making - Lab Data Result diagrams: 08/16/21 19:09 08/16/21 19:09 Critical care attestation.: If time is entered above; I have spent that time in minutes in the direct care of this critically ill patient, excluding procedure time. ED Disposition Clinical Impression: Medical clearance for psychiatric admission Disposition: 01 HOME / SELF CARE / HOMELESS Is pt being admited?: No Does the pt Need Aspirin: No Condition: Stable Instructions: Medical Screening Exam Additional Instructions: Patient to be discharged after social studies department chair consult is completed. Patient to follow-up with primary care in 2 to 3 days. Patient to rest. Patient to increase water. Patient to take Tylenol or ibuprofen as needed for pain. Patient to take meds as directed. Patient to return to the ER if condition worsens, changes or new symptoms arise. OUTPATIENT MENTAL HEALTH RESOURCES [facility], [facility] Marisela Ryder MD: [address], [address] [place] [address] [place], [place] [id number] [facility]: [employer] [address] [place] [address] [place] [address] [phone] [facility]: [facility] Healthcare: [address] [place] [address] [address] [place] [address] [place] [address] [facility] [id number] [facility]: Juwan Chau MD: [id number] [facility] [address] [facility] [id number] [facility]: [address] [place] [address] [id number] [phone] [place] CRISIS AND ACCESS LINE: In case of an emergency, please contact the following numbers: [place] Crisis and Access Line: Number: Crisis Text Line: (Text START) Number: [phone] Suicide Prevention Line: Number: Emergency Number: 911 SUBSTANCE ABUSE PROGRAMS: [facility]: Location: [place], [place] [facility] Address: [address] [place] [address] [facility] Recovery: Address: [address] [place] [address] [facility] Rehabilitation: Address: [address] [place] [address] [facility] Community: Address: [address] [place] [address] [facility] Address: [address] [place] [id number]. Please contact above numbers to attempt placement into free based program. Medicaid Programs: [facility]: Address: [address] [place] [address] [facility]: Address: [address] [place] [id number] Referrals: MIRNA LOPEZ MD [Primary Care Provider] - 2-3 Days Time of Disposition: 21:48
[2021-08-16 19:28] LABS: Basophils # (Auto) 0.1 K/mm3 (0.0-0.1); Basophils % (Auto) 0.9 % (0.0-1.8); Eosinophils # (Auto) 0.2 K/mm3 (0.0-0.4); Eosinophils % (Auto) 2.6 % (0.0-4.3); Hematocrit 40.4 % (30.3-42.9); Hemoglobin 13.8 gm/dl (10.1-14.3); Lymphocytes # (Auto) 1.7 K/mm3 (1.2-5.4); Lymphocytes % (Auto) 27.9 % (13.4-35.0); Mean Corpuscular HGB Conc 34 % (30-34); Mean Corpuscular Volume 81 fl (79-97); Monocytes # (Auto) 0.3 K/mm3 (0.0-0.8); Monocytes % (Auto) 5.2 % (0.0-7.3); Platelet Count 234 K/mm3 (140-440); Red Blood Count 5.02 M/mm3 (3.65-5.03); Red Cell Distribution Width 18.8 % (13.2-15.2)
[2021-08-16 19:45] LABS: Albumin 4.2 g/dL (3.9-5); Calcium 8.9 mg/dL (8.4-10.2)
--- NOTE | 2021-08-17 13:44 | Emergency Department Report ---
Blank Doc - Documentation Documentation: Patient was here awaiting case management evaluation and placement. The family has been called and told that they need to pick the mother up. If they are unable to do so, Adult Protective Services will be notified. Discharge paperwork has been provided and completed.
[2021-08-17 14:51] LABS: Bilirubin,Urine NEG (Negative); Blood,Urine NEG (Negative); Color,Urine Yellow (Yellow); Protein,Urine <15 mg/dL mg/dL (Negative); Urobilinogen,Urine < 2.0 mg/dL (<2.0)
[2021-08-17 14:59] LABS: Amphetamine Screen,Urine Negative; Benzodiazepines Screen,Urine Negative; Cannabinoid Screen,Urine Negative; Methadone Screen,Urine Negative; Opiate Screen,Urine Negative
[2021-08-17 15:14] LABS: Cocaine Screen,Urine Positive
[2021-08-17] MEDS ORDERED: NON-FORMULARY EACH (Lipitor 40 MG) PO SCH (22:00)
[2021-08-17] MEDS ORDERED: ZIPRASIDONE 40 MG PO SCH (22:00)
[2021-08-17] MEDS ORDERED: NON-FORMULARY EACH (Metoprolol 25 MG) PO SCH (22:00)
[2021-08-17] MEDS: METOPROLOL TARTRATE 25 MG TAB PO SCH (22:17)
[2021-08-17] MEDS: ZIPRASIDONE 40 MG CAP PO SCH (22:17)
--- NOTE | 2021-08-18 09:08 | Emergency Department Report ---
Blank Doc - Documentation Documentation: Patient was resting comfortably. There were no events throughout the night. Case management disposition is currently pending.
[2021-08-18] MEDS ORDERED: NON-FORMULARY EACH (Rivaroxaban 20 MG Tablet) PO SCH (10:00)
[2021-08-18] MEDS ORDERED: NON-FORMULARY EACH (Dulaglutide [Trulicity] 0.75 MG/0.5 ML Pen.Injctr) SUB-Q SCH (10:00)
[2021-08-18] MEDS: METOPROLOL TARTRATE 25 MG TAB PO SCH ×2 (11:19→22:12)
[2021-08-18] MEDS: ZIPRASIDONE 40 MG CAP PO SCH (22:12)
[2021-08-19] MEDS ORDERED: DEXTROSE 50% IN WATER (25GM) 50 ML SYRINGE IV PRN (09:31)
[2021-08-19] MEDS: METOPROLOL TARTRATE 25 MG TAB PO SCH ×2 (09:42→23:23)
[2021-08-19] MEDS: INSULIN REGULAR, HUMAN 100 UNITS/1 ML SUB-Q SCH ×3 (09:50→22:48)
[2021-08-19] MEDS ORDERED: IBUPROFEN 400 MG TAB PO ONE (09:53)
[2021-08-19] MEDS ORDERED: NICOTINE 21 MG/24 HR PATCH TD ONE (09:55)
--- NOTE | 2021-08-19 11:22 | Event Note ---
Date: 08/19/21 Patient resting comfortably. No acute distress. Nursing team reports no acute issues or concerns this morning. Patient deemed medically suitable for discharge from the emergency room during her initial ER evaluation. She continues to remain medically suitable for discharge. Disposition as per our case management colleagues. The emergency room will remain available should this patient experience a change in her clinical status or decompensation. Vital Signs 08/16/21 08/17/21 08/17/21 18:26 02:53 04:00 Temperature 98.4 F Pulse Rate 100 H 67 80 Respiratory 16 16 16 Rate Blood Pressure Blood Pressure 130/94 102/57 111/65 [Right] O2 Sat by Pulse 98 96 96 Oximetry 08/17/21 08/17/21 08/18/21 08:02 20:27 06:25 Temperature 99.0 F Pulse Rate 84 98 H 82 Respiratory 18 19 16 Rate Blood Pressure Blood Pressure 127/65 132/81 119/60 [Right] O2 Sat by Pulse 96 100 94 Oximetry 08/18/21 08/18/21 08/18/21 08:31 16:58 22:16 Temperature 98.4 F 97.9 F Pulse Rate 85 92 H Respiratory 19 19 Rate Blood Pressure Blood Pressure 137/89 138/88 [Right] O2 Sat by Pulse 96 98 97 Oximetry 08/18/21 08/19/21 08/19/21 22:17 06:04 07:46 Temperature Pulse Rate 87 Respiratory 19 14 16 Rate Blood Pressure Blood Pressure 132/78 [Right] O2 Sat by Pulse 97 96 97 Oximetry 08/19/21 08/19/21 07:49 09:42 Temperature Pulse Rate 95 H 95 H Respiratory 16 Rate Blood Pressure 155/88 Blood Pressure 155/88 [Right] O2 Sat by Pulse 97 Oximetry
[2021-08-19] MEDS: ZIPRASIDONE 40 MG CAP PO SCH (23:24)
[2021-08-20] MEDS ORDERED: IBUPROFEN 400 MG TAB PO ONE (03:36)
[2021-08-20] MEDS: INSULIN REGULAR, HUMAN 100 UNITS/1 ML SUB-Q SCH ×3 (07:20→16:26)
[2021-08-20] MEDS: METOPROLOL TARTRATE 25 MG TAB PO SCH (10:30)
[2021-08-20] MEDS ORDERED: IBUPROFEN 800 MG TAB PO ONE (10:45)
--- NOTE | 2021-08-20 12:17 | Event Note ---
Date: 08/20/21 Patient seen and examined. Nursing team reports no acute or emergent events. Patient is awake and conversing on his cell phone. Patient remains medically suitable at this time for disposition as per the case management team. Nursing team attempting to reconcile home medications.
[2021-08-21] MEDS: METOPROLOL TARTRATE 25 MG TAB PO SCH ×2 (10:28→23:57)
[2021-08-21] MEDS ORDERED: IBUPROFEN 800 MG TAB PO ONE ×2 (11:24→17:41)
[2021-08-21] MEDS: ZIPRASIDONE 40 MG CAP PO SCH ×2 (23:56→23:57)
[2021-08-21] MEDS: INSULIN REGULAR, HUMAN 100 UNITS/1 ML SUB-Q SCH (23:57)
[2021-08-22] MEDS ORDERED: IBUPROFEN 800 MG TAB PO ONE ×3 (06:25→22:29)
[2021-08-22] MEDS: INSULIN REGULAR, HUMAN 100 UNITS/1 ML SUB-Q SCH ×4 (07:36→09:57)
[2021-08-22] MEDS ORDERED: NICOTINE 21 MG/24 HR PATCH TD ONE (08:37)
[2021-08-22] MEDS: METOPROLOL TARTRATE 25 MG TAB PO SCH (10:11)
[2021-08-22] MEDS ORDERED: VENLAFAXINE XR 75 MG CAP PO ONE (18:44)
[2021-08-22] MEDS ORDERED: PREGABALIN 50 MG CAP PO ONE (18:45)
[2021-08-23] MEDS: INSULIN REGULAR, HUMAN 100 UNITS/1 ML SUB-Q SCH ×6 (00:01→23:30)
[2021-08-23] MEDS: METOPROLOL TARTRATE 25 MG TAB PO SCH ×3 (00:26→23:28)
[2021-08-23] MEDS: DOXEPIN 10 MG CAP PO SCH ×2 (00:26→23:31)
[2021-08-23] MEDS: ZIPRASIDONE 40 MG CAP PO SCH ×2 (00:26→23:29)
[2021-08-23] MEDS ORDERED: IBUPROFEN 800 MG TAB PO ONE (15:29)
[2021-08-23 23:50] VITALS: BP 129/81
== END 2021-08-23 23:55 | disposition home or self-care (01) ==
LOC: ED 18:21
DX: Z04.6 Encounter for general psychiatric examination, requested by authority (principal); R45.850 Homicidal ideations; I10 Essential (primary) hypertension; F31.9 Bipolar disorder, unspecified; F17.200 Nicotine dependence, unspecified, uncomplicated; Z88.5 Allergy status to narcotic agent; Z88.8 Allergy status to other drugs, medicaments and biological substances; Z79.899 Other long term (current) drug therapy
CPT/HCPCS: 36415; 80053; 80307; 80320; 81001; 82962; 85025; 96372; 99284; Q9967; G0480; J1815

== ENCOUNTER 2021-08-24 01:49 | Emergency (ER) | payer MEDICARE ==
--- NOTE | 2021-08-24 07:23 | Emergency Department Report ---
Blank Doc - Documentation Documentation: Patient is 50 years old female with history of bipolar, group home patient. Patient has been in the ER for approximately 7 days since she was discharged from the group home because patient was found to be smoking in her room where there is oxygen. Patient has been evaluated by our social and political studies professor for placement. structural metal worker find a place for the patient yesterday and EMS took the patient to the address that was given by social and political studies professor according to the report from nursing staff however the address was wrong and patient was brought back to the emergency room. Patient is a stable vital sign. Waiting for social and political studies professor further evaluation. New consult for social and political studies professor has been put in the system.
[2021-08-24] MEDS ORDERED: VENLAFAXINE 75 MG TAB PO ONE (09:42)
[2021-08-24] MEDS ORDERED: METOPROLOL TARTRATE 50 MG TAB PO ONE (09:44)
[2021-08-24] MEDS ORDERED: PREGABALIN 50 MG CAP PO ONE (09:44)
[2021-08-24] MEDS ORDERED: PREGABALIN 75 MG CAP PO SCH (10:00)
[2021-08-24] MEDS ORDERED: RIVAROXABAN 20 MG TAB PO ONE (11:00)
[2021-08-24] MEDS ORDERED: RIVAROXABAN 2.5 MG TAB PO ONE (11:00)
[2021-08-24] MEDS ORDERED: IBUPROFEN 600 MG TAB PO ONE (18:36)
[2021-08-25] MEDS: METOPROLOL TARTRATE 25 MG TAB PO SCH ×2 (11:00→23:02)
[2021-08-25] MEDS ORDERED: IBUPROFEN 800 MG TAB PO ONE (11:36)
[2021-08-25] MEDS ORDERED: VENLAFAXINE 75 MG TAB PO ONE ×2 (11:57→13:40)
[2021-08-25] MEDS ORDERED: PREGABALIN 75 MG CAP PO ONE (11:57)
[2021-08-25] MEDS ORDERED: NICOTINE 7 MG/24 HR PATCH TD ONE (12:50)
[2021-08-25] MEDS ORDERED: DOXEPIN 10 MG CAP PO ONE (23:41)
[2021-08-25] MEDS ORDERED: ZIPRASIDONE 20 MG CAP PO ONE (23:41)
[2021-08-26] MEDS ORDERED: VENLAFAXINE 75 MG TAB PO ONE (10:29)
[2021-08-26] MEDS ORDERED: IBUPROFEN 800 MG TAB PO ONE (10:30)
[2021-08-26] MEDS ORDERED: PREGABALIN 75 MG CAP PO SCH (11:00)
[2021-08-26] MEDS: METOPROLOL TARTRATE 25 MG TAB PO SCH ×2 (11:00→23:19)
[2021-08-26] MEDS ORDERED: NICOTINE 7 MG/24 HR PATCH TD SCH (11:00)
[2021-08-26] MEDS: RIVAROXABAN 20 MG TAB PO SCH (13:00)
[2021-08-26] MEDS ORDERED: ZIPRASIDONE 40 MG CAP PO SCH (22:00)
[2021-08-26] MEDS ORDERED: DOXEPIN 10 MG CAP PO SCH (22:00)
[2021-08-27] MEDS: METOPROLOL TARTRATE 25 MG TAB PO SCH (10:29)
[2021-08-27] MEDS ORDERED: PREGABALIN 50 MG CAP PO ONE (10:29)
[2021-08-27] MEDS: RIVAROXABAN 20 MG TAB PO SCH (14:35)
[2021-08-27 18:48] VITALS: BP 136/69
== END 2021-08-27 18:48 | disposition home or self-care (01) ==
LOC: ED 01:49
DX: Z13.30 Encounter for screening examination for mental health and behavioral disorders, unspecified (principal); F17.200 Nicotine dependence, unspecified, uncomplicated; I10 Essential (primary) hypertension; F31.9 Bipolar disorder, unspecified; Z88.2 Allergy status to sulfonamides; Z88.5 Allergy status to narcotic agent; Z88.6 Allergy status to analgesic agent
CPT/HCPCS: 99283; 99284